=== PATIENT | male | born 2000 | race African-American/Black ===

== ENCOUNTER 2019-12-19 09:54 | Emergency (ER) | payer SELFPAY ==
--- NOTE | ~2019-12-19 | XR_ITS ---
EXAMINATION: XR chest 2V EXAM DATE: 12/19/2019 10:45 INDICATION: Upper abdominal pain. TECHNIQUE: Frontal and lateral projections of the chest obtained and reviewed. There is no prior maricruz dy for comparison. FINDINGS: The lungs are clear. There are no pleural effusions. The cardiomediastinal silhouette is within normal limits. There is no pneumothorax suspected. The bones and soft tissues are unremarkab le. IMPRESSION: Normal chest x-ray exam. Reviewed, dictated and finalized at location A. IMPRESSION: Normal chest x-ray exam.
--- NOTE | ~2019-12-19 | CT_ITS ---
EXAMINATION: CT abdomen pelvis w con EXAM DATE: 12/19/2019 10:46 INDICATION: Nausea vomiting diarrhea. Upper abdominal pain, symptoms 1 day. TECHNIQUE: Spiral CT of the abdomen and pelvis was performed following intravenous injection of 100 m L Omnipaque 350. Axial, coronal and sagittal images were reviewed. The dose-length product (DLP) fo r this examination was 1876.25 mGy-cm. The exposure was tailored according to patient size (auto mA exposure control), and iterative reconstruction (ASIR) was used as additional dose reduction techniqu e. There is no prior study for comparison. FINDINGS: The liver, spleen, adrenal glands and pancreas are unremarkable. Gallbladder is unremarkab le. No biliary obstruction. Portal and splenic veins are patent. Kidneys enhance symmetrically. T here is no hydronephrosis. The prostate is unremarkable. The bladder is collapsed at time of imagi ng limiting evaluation. There is no retroperitoneal or pelvic lymphadenopathy. The appendix is normal. The stomach and small bowel are unremarkable. There is colonic fluid, corre late for diarrhea. No colonic wall thickening. Consider gastroenteritis, diarrhea. No free intraper itoneal gas. The heart is normal in size. There are no pericardial or pleural effusions. The lung bases are unremarkable. The bones are unremarkable. IMPRESSION: 1. Colonic fluid, consider gastroenteritis, diarrhea. Reviewed, dictated and finalized at location A.
--- NOTE | 2019-12-19 09:59 | ED.GENADULT ---
HPI - General Adult General Chief complaint: Nausea/Vomiting/Diarrhea Stated complaint: N/V/D X1D Time Seen by Provider: 12/19/19 09:59 Source: patient Mode of arrival: ambulatory Limitations: no limitations History of Present Illness HPI narrative: 19-year-old male patient presents to the [facility] with complaints of nausea, vomiting and diarrhea that started about 2 days ago. Patient states that his diarrhea started about 2 days ago however his vomiting is just started this morning. Patient states that the last time he ate was last night. Patient states he ordered some [employer] from door?and had a cheeseburger. Patient states he vomited this morning. Patient states last time he vomited was about 10 minutes ago. Patient denies any blood or dark tarry stools to the diarrhea. Denies any fevers that he is aware of. Denies any chest pain or shortness of breath. Patient states he is having some abdominal pain and rates his abdominal pain about a 7 out of 10 at this time. Related Data Allergies Allergy/AdvReac Type Severity Reaction Status Date / Time No Known Allergies Allergy Verified 12/19/19 10:02 Review of Systems Review of Systems: Narrative: CONSTITUTIONAL: Denies fever, chills, or sweats. EYES: Denies visual changes, redness, or discharge. ENT: Denies rhinorrhea, congestion, sore throat, or otalgia. CARDIOVASCULAR: Denies chest pain, palpitations, or edema. RESPIRATORY: Denies cough or dyspnea. GASTROINTESTINAL: Positive abdominal pain, nausea, vomiting, and diarrhea. GENITOURINARY: Denies dysuria or hematuria. SKIN: Denies rash or itching. MUSCULOSKELETAL: Denies back pain, joint pain, or myalgia. NEUROLOGIC: Denies headache, numbness, or weakness. PSYCHIATRIC: Denies anxiety or depression. PMFSH Social History Social History Gender identity (if verbalized by the patient): Male Comments At the time of my signature I agree with nursing past medical history, surgical, social, and family history. There is no relevant family history pertinent to the presenting complaint. Exam Narrative: Exam Narrative: GENERAL: Well-appearing, well-nourished, and in no acute distress. HEAD: Normocephalic, atraumatic. EYES: PERRLA and EOMI. ENT: Nares clear, no rhinorrhea or epistaxis. Mucous membranes moist. NECK: Supple. No lymphadenopathy CHEST: Clear to auscultation. No respiratory distress. Patient able talk in clear complete sentences.. HEART: Regular rate and rhythm. No murmur heard. Normal peripheral pulses. ABDOMEN: Soft, nondistended. No guarding, rebound tenderness, or rigid. Patient has tenderness noted to the left upper quadrant and right upper quadrant as well as epigastric area on palpation. No pulsatilla masses. Hyperactive bowel sounds present in all four quadrants. No organomegaly. Negative Salam[place]?s sign. No periumbicial tenderness. No Supra public tenderness or distension. Good femoral pulses bilaterally. No hernia noted. No scars or surface trauma. EXTREMITIES: Normal range of motion. No edema. SKIN: Warm, dry, no rash. NEURO: No focal deficits. Alert and oriented x3. Course Reevaluation(s) Reevaluation #1: Reevaluated patient after his CT and lab work had come back. Patient states that his nausea and vomiting is much better. Patient states he still has a little bit of abdominal cramping but overall is feeling better after receiving the Zofran and fluids. Discussed with patient that his lab work all looks well and there does not seem to be any evidence of an obvious infection. Discussed with him this most likely is a viral gastroenteritis which will pass on its own. Discussed with patient that we will go ahead and continue the fluids as well as p.o. challenge him prior to discharging him to make sure he can keep down some food and fluid. Discussed with him that if he is able to keep down fluids and most likely we will discharge him home with some medication
[2019-12-19 10:01] VITALS: BP 118/79; PULSE 78; RESP 18; TEMP 37; O2SAT 99
--- NOTE | 2019-12-19 10:10 | ECG_ITS ---
Measurements Intervals [place] Rate: 71 P: 23 ND: 161 QRS: 18 QRSD: 96 T: 8 QT: 354 QTc: 386 Interpretive Statements SINUS RHYTHM WITH SINUS ARRHYTHMIA NORMAL ECG Electronically Signed On 12-19-2019 13:15:09 CDT by Francisco Javier Fitzgerald D.O.
[2019-12-19] MEDS: ONDANSETRON INJ 4 MG/2 ML VIAL IV PUSH (10:17)
[2019-12-19] MEDS: SODIUM CHLORIDE 0.9% IV 1,000 ML 999 ML IV CONT (10:18)
[2019-12-19 10:22] LABS: Basophils Percent Auto 0.1 % (0.2-1.2); Eosinophils Absolute Auto 0.2 K/mm3 (0-0.3); Eosinophils Percent Auto 1.6 % (0-4.4); Hemoglobin 15.5 g/dL (14.0-18.0); Immature Granulocyte Absolute 0.02 K/mm3 (0.00-0.031); Immature Granulocyte Percent A 0.2 % (0-0.5); Lymphocytes Absolute Auto 3.05 K/mm3 (0.9-3.2); Lymphocytes Percent Auto 31.2 % (18.3-44.2); Mean Corpuscular Hemoglobin 29.2 pg (26-34); Mean Corpuscular Volume 88.7 fl (80-100); Mean Platelet Volume 12.2 fl (7.4-10.4); Monocytes Absolute Auto 0.7 K/mm3 (0.1-0.6); Monocytes Percent Auto 7.5 % (2.6-8.5); Neutrophils Absolute Auto 5.8 K/mm3 (1.3-6.7); Neutrophils Percent Auto 59.4 % (45.5-73.1); Platelet Count Result 188 k/mm3 (150-375); Red Cell Distribution Width 13.2 % (11.5-14.5); White Blood Count 9.8 K/mm3 (4.5-10.0)
[2019-12-19 10:26] LABS: Add Urine Microscopic? YES; Appearance Urine Clear (Clear); Bacteria Urine Trace /hpf; Bilirubin Urine Negative (Negative); Blood Urine Negative (Negative); Color Urine Yellow (Yellow); Glucose Urine UA Negative (Negative); Ketones Urine Negative (Negative); Leukocyte Esterase Ur Negative LEU/UL (Negative); Mucus Urine Rare /lpf; Nitrate Urine Negative (Negative); Protein Urine Negative (Negative); RBC Urine 0-2 /hpf (0-2); Specific Grav Ur 1.029 (1.001-1.035); Squamous Epithelial Cell Urine Few /hpf (Few)
[2019-12-19 10:32] LABS: INR 0.9; Partial Thromboplastin Time 25.7 SECONDS (22.3-36.8); Prothrombin Time 12.2 Seconds (11.1-14.7)
[2019-12-19 10:34] LABS: Alanine Aminotransferase 53 U/L (4-50); Albumin Level 4.7 g/dL (3.5-5.1); Alkaline Phosphatase 129 U/L (38-126); Aspartate Amino Transferase 38 U/L (17-59); Bilirubin,Total 0.7 mg/dL (0.2-1.3); Blood Urea Nitrogen 17 mg/dL (9-20); Calcium 9.5 mg/dL (8.4-10.2); Carbon Dioxide 30 mmol/L (22-30); Chloride 103 mmol/L (98-107); Estimated CRCL calculation 175 ml/min; Estimated Glomerular Filt Rate > 60; Glucose 107 mg/dL (75-110); Lipase 40 U/L (23-300); Potassium 4.2 mmol/L (3.4-5.0); Sodium 139 mmol/L (137-145)
[2019-12-19 10:35] LABS: Estimated CRCL calculation 159 ml/min; Estimated Glomerular Filt Rate > 60
[2019-12-19 10:56] VITALS: TEMP 37
[2019-12-19] MEDS: FAMOTIDINE 20 MG/2 ML VIAL IV PUSH (11:04)
[2019-12-19] MEDS: DICYCLOMINE HCL INJ 20 MG/2 ML VIAL IM (11:05)
[2019-12-19 11:09] VITALS: BP 117/66; PULSE 70; RESP 18; O2SAT 100
[2019-12-19 11:57] VITALS: BP 132/78; PULSE 70; RESP 20; O2SAT 100
== END 2019-12-19 11:58 | disposition home or self-care (01) ==
PROVIDERS: Emergency Provider Nurse Practitioner Family
DX: K52.9 Noninfective gastroenteritis and colitis, unspecified (principal)
CPT/HCPCS: 36415; 71046; 74177; 80053; 81001; 82248; 83690; 85025; 85610; 85730; 93005; 96365; 96372; 96375; 99284; J0131; J0500; J2405; J7030; Q9967